=== PATIENT | female | born 1995 | race Caucasian/White ===

== ENCOUNTER 2017-12-15 00:17 | Emergency (ER) | payer MEDICAID ==
[~2017-12-15] VITALS: Ht 167.6 cm; Wt 56.7 kg
[2017-12-15] MEDS ORDERED: ALPRAZOLAM TAB 0.5MG (00:40)
[2017-12-15] MEDS ORDERED: SYMBICORT AER 160-4.5 (00:40)
[2017-12-15] MEDS ORDERED: MONTELUKAST TAB 10MG (00:40)
[2017-12-15] MEDS ORDERED: HYDROCODONE/APAP 5-325MG TABLET ONE (01:10)
[2017-12-15] MEDS ORDERED: HYDROCODONE/APAP 5-325MG TABLET PO ONE (01:15)
--- NOTE | 2017-12-15 02:12 | NUR ---
Patient discharged to home in stable conditon. Written and verbal after care instructions given. Patient verbalizes understanding of instructions. Pt left ER in steady gait. All belongings with pt. VSS. No acute distress noted. Pt will take Uber to get home.
[2017-12-15 02:13] VITALS: BP 121/74
== END 2017-12-15 02:14 | disposition home or self-care (01) ==
LOC: ER 00:22
DX: S13.4XXA Sprain of ligaments of cervical spine, initial encounter (principal); J45.909 Unspecified asthma, uncomplicated; Z79.899 Other long term (current) drug therapy; V43.62XA Car passenger injured in collision with other type car in traffic accident, initial encounter; Y93.89 Activity, other specified; Y92.410 Unspecified street and highway as the place of occurrence of the external cause; Y99.8 Other external cause status
CPT/HCPCS: 70450; 72125; 99284; A4663

== ENCOUNTER 2018-06-26 18:42 | Emergency (ER) | payer MEDICAID ==
[~2018-06-26] VITALS: Ht 167.6 cm; Wt 54.4 kg
[~2018-06-26 18:42] MED LIST: ALPRAZOLAM TAB 0.5MG; MONTELUKAST TAB 10MG; SYMBICORT AER 160-4.5
[2018-06-26] MEDS ORDERED: CYCLOBENZAPRINE (18:55)
[2018-06-26] MEDS ORDERED: MELOXICAM (18:55)
--- NOTE | 2018-06-26 19:24 | NUR ---
DR. NAYLOR AT BEDSIDE FOR MSE.
--- NOTE | 2018-06-26 19:28 | NUR ---
SHIFT REPORT GIVEN TO JANEY HOFF.
--- NOTE | 2018-06-26 19:38 | NUR ---
Patient discharged to home in stable conditon. Written and verbal after care instructions given. Patient verbalizes understanding of instructions. PATIENT LEFT WITH STABLE GAIT.
[2018-06-26 19:39] VITALS: BP 130/63
== END 2018-06-26 19:41 | disposition home or self-care (01) ==
LOC: ER 18:42
DX: S39.012A Strain of muscle, fascia and tendon of lower back, initial encounter (principal); J45.909 Unspecified asthma, uncomplicated; Z79.51 Long term (current) use of inhaled steroids; Z79.899 Other long term (current) drug therapy; X58.XXXA Exposure to other specified factors, initial encounter; Y93.89 Activity, other specified; Y92.89 Other specified places as the place of occurrence of the external cause; Y99.8 Other external cause status
CPT/HCPCS: A4663

== ENCOUNTER 2018-11-27 15:46 | Emergency (ER) | payer MEDICAID ==
[~2018-11-27] VITALS: Ht 167.6 cm; Wt 54.4 kg
[~2018-11-27 15:46] MED LIST changes: -ALPRAZOLAM TAB 0.5MG; +CYCLOBENZAPRINE; +MELOXICAM; -MONTELUKAST TAB 10MG; -SYMBICORT AER 160-4.5
[2018-11-27] MEDS ORDERED: IV NORMAL SALINE 1000 ML BAG IV ONE ×2 (16:00→16:45)
[2018-11-27] MEDS ORDERED: ONDANSETRON 4 MG/2 ML VIAL IV ONE (16:00)
[2018-11-27 16:03] LABS: *BILIRUBIN,URIN 1+ (NEGATIVE); *BLOOD, URINE 3+ (NEGATIVE); *CLARITY,URINE SLIGHTLY CLOUDY (CLEAR); *COLOR,URINE YELLOW (YELLOW); *KETONES,URINE 4+ (NEGATIVE); *UROBILINOGEN,URINE 0.2 E.U./dl (NORMAL); LEUKOCYTE ESTERASE ,URINE NEGATIVE (NEGATIVE); NITRITE, URINE NEGATIVE (NEGATIVE); PH,URINE 5.5 (5.0-8.0); UGLUCOSE NEGATIVE (NEGATIVE)
[2018-11-27 16:04] LABS: *URINE HCG, QUAL NEGATIVE (NEGATIVE)
[2018-11-27] MEDS ORDERED: ONDANSETRON 4 MG/2 ML VIAL ONE (16:07)
[2018-11-27 16:12] LABS: RBC,URINE 20-50 /HPF (0-3)
[2018-11-27 16:13] LABS: BACTERIA,URINE FEW /HPF (NONE SEEN); MUCUS,URINE MODERATE /LPF (0-FEW); SQUAMOUS EPITHELIAL CELL,UR MODERATE /HPF (NONE SEEN)
--- NOTE | 2018-11-27 16:15 | NUR ---
RECEIVED PT AMBULATORY FROM HOME. ALERT AND ORIENTED X4, CC NAUSEA AND VOMITING X 24HRS. DENIES PAIN. NOT IN DISTRESS [id number] MD AT BEDSIDE FOR HISTORY AND PHYSICAL
[2018-11-27 16:21] LABS: BASOPHILS % (AUTO) 0.4 % (0.0-2.0); HEMATOCRIT 41.9 % (31.2-41.9); HEMOGLOBIN 13.5 g/dL (10.9-14.3); LYMPHOCYTES # (AUTO) 0.6 K/uL (20.0-40.0); LYMPHOCYTES % (AUTO) 11.2 % (20.5-51.5); MEAN CORPUSCULAR HEMOGLOBIN 25.4 uug (24.7-32.8); MEAN CORPUSCULAR HGB CONC 32 g/dL (32.3-35.6); MEAN CORPUSCULAR VOLUME 78.7 fL (75.5-95.3); MONOCYTES # (AUTO) 0.1 K/uL (2.0-10.0); MONOCYTES % (AUTO) 2.4 % (0.0-11.0); NEUTROPHILS # (AUTO) 4.9 K/uL (1.8-8.9); PLATELET COUNT (AUTO) 308 K/uL (179-408); RED BLOOD CELL COUNT(AUTO) 5.33 MIL/uL (3.63-4.92); WHITE BLOOD COUNT (AUTO) 5.7 K/uL (3.8-11.8)
[2018-11-27 16:26] LABS: POTASSIUM 3.7 mmol/L (3.5-5.1)
--- NOTE | 2018-11-27 16:30 | NUR ---
RN INITIATED IV TO RIGHT AC, INTACT AND INFUSING WELL. ORDERED MEDS GIVEN PRESCRIBED. WILL MONITOR ACCORDINGLY. MD MADE AWARE PT IS REQUESTING XANAX FOR ANXIETY SHE HAS NOT TAKEN IT FOR THE PAST 24HRS DUE TO EMESIS. PT IS REASSURED, KEPT CALM AND COMFORTABLE.
[2018-11-27 16:32] LABS: BILIRUBIN,DIRECT 0.1 mg/dL (0.0-0.2); BILIRUBIN,TOTAL 0.5 mg/dL (0.2-1.0); TOTAL PROTEIN, SERUM 9.2 g/dL (6.4-8.2)
[2018-11-27] MEDS ORDERED: MORPHINE SULFATE 4 MG/1 ML DISP.SYRIN IV ONE (17:15)
[2018-11-27] MEDS ORDERED: IV NORMAL SALINE 250 ML IV ONE (17:22)
[2018-11-27] MEDS ORDERED: SWABABLE VALVE TRANSFER SET EA MC ONE (17:22)
[2018-11-27] MEDS ORDERED: IOHEXOL 300MG/ML 100 ML INFUS..BTL ONE (17:22)
--- NOTE | 2018-11-27 17:31 | NUR ---
Patient wants Xanax with the IV morphine injection, notified.
[2018-11-27] MEDS ORDERED: MORPHINE SULFATE 4 MG/1 ML DISP.SYRIN ONE (17:35)
[2018-11-27] MEDS ORDERED: METOCLOPRAMIDE HCL 10 MG/2 ML VIAL IV ONE (17:45)
[2018-11-27] MEDS ORDERED: METOCLOPRAMIDE HCL 10 MG/2 ML VIAL ONE (17:52)
--- NOTE | 2018-11-27 18:55 | NUR ---
Patient is resting comfortably on gurney with eyes closed. PATIENT IS PAIN FREE AT THIS TIME.
--- NOTE | 2018-11-27 19:14 | NUR ---
Hands off report given to JANEY Branch, still for CT scan results.
--- NOTE | 2018-11-27 19:56 | NUR ---
Patient discharged to home in stable conditon. Written and verbal after care instructions given. Patient verbalizes understanding of instructions. Pt ambulated out of ER with steady gait, no acute signs of distress, VSS, all belongings taken, IV site discontinued.
[2018-11-27 19:57] VITALS: BP 115/80
== END 2018-11-27 19:58 | disposition home or self-care (01) ==
LOC: ER 15:48
DX: E86.0 Dehydration (principal); R10.13 Epigastric pain; F41.9 Anxiety disorder, unspecified; J45.909 Unspecified asthma, uncomplicated; Z79.899 Other long term (current) drug therapy
CPT/HCPCS: 36415; 74177; 80048; 80076; 81000; 81001; 83690; 84703; 85025; 93005; 96361; 96374; 96375; 99284; J2270; J2405; J2765; Q9967; A4663; J7030; J7050

== ENCOUNTER 2019-01-31 18:30 | Emergency (ER) | payer MEDICAID, OTHER ==
[~2019-01-31] VITALS: Ht 167.6 cm; Wt 54.4 kg
--- NOTE | 2019-01-31 18:40 | NUR ---
in room 2b
--- NOTE | 2019-01-31 18:49 | NUR ---
initial assessment done. patient c/o wakness and c/0 never had seizure before. swallow study done and passed
--- NOTE | 2019-01-31 19:00 | NUR ---
report given to Cathy
--- NOTE | 2019-01-31 19:28 | NUR ---
Patient transported to CT in stable condition.
[2019-01-31 19:31] LABS: BASOPHILS % (AUTO) 0.9 % (0.0-2.0); EOSINOPHILS # (AUTO) 0.1 K/uL (0.0-0.7); EOSINOPHILS % (AUTO) 1.7 % (0.0-7.0); HEMATOCRIT 37.2 % (31.2-41.9); HEMOGLOBIN 12.2 g/dL (10.9-14.3); LYMPHOCYTES # (AUTO) 1.2 K/uL (20.0-40.0); LYMPHOCYTES % (AUTO) 26.9 % (20.5-51.5); MEAN CORPUSCULAR HEMOGLOBIN 25.3 uug (24.7-32.8); MEAN CORPUSCULAR HGB CONC 33 g/dL (32.3-35.6); MEAN CORPUSCULAR VOLUME 77.1 fL (75.5-95.3); MONOCYTES # (AUTO) 0.3 K/uL (2.0-10.0); MONOCYTES % (AUTO) 6.3 % (0.0-11.0); NEUTROPHILS # (AUTO) 2.9 K/uL (1.8-8.9); NEUTROPHILS % (AUTO) 64.2 % (38.5-71.5); PLATELET COUNT (AUTO) 298 K/uL (179-408); RED BLOOD CELL COUNT(AUTO) 4.82 MIL/uL (3.63-4.92); WHITE BLOOD COUNT (AUTO) 4.6 K/uL (3.8-11.8)
--- NOTE | 2019-01-31 19:37 | NUR ---
Patient back in room from CT in stable condition.
[2019-01-31 19:38] LABS: CREATININE 0.6 mg/dL (0.6-1.3); POTASSIUM 4.2 mmol/L (3.5-5.1)
[2019-01-31 19:49] LABS: BILIRUBIN,DIRECT 0.1 mg/dL (0.0-0.2); BILIRUBIN,TOTAL 0.2 mg/dL (0.2-1.0); TOTAL PROTEIN, SERUM 7.3 g/dL (6.4-8.2)
[2019-01-31] MEDS ORDERED: ALPRAZOLAM 0.25 MG TABLET PO ONE (20:00)
[2019-01-31] MEDS ORDERED: ALPRAZOLAM 0.25 MG TABLET ONE (20:03)
--- NOTE | 2019-01-31 20:19 | NUR ---
Patient discharged to home in stable conditon. Written and verbal after care instructions given. Patient verbalizes understanding of instructions. Patient ambulated with stable gait.
[2019-01-31 22:29] VITALS: BP 122/72
== END 2019-01-31 22:30 | disposition home or self-care (01) ==
LOC: ER 18:34
DX: R56.9 Unspecified convulsions (principal); J45.909 Unspecified asthma, uncomplicated; F41.9 Anxiety disorder, unspecified; Z79.899 Other long term (current) drug therapy
CPT/HCPCS: 36415; 70450; 85025; 93005; A4663

== ENCOUNTER 2019-08-31 20:23 | Emergency (ER) | payer SELFPAY ==
--- NOTE | 2019-08-31 20:45 | NUR ---
Patient left without being triaged or seen by ERMD.
== END 2019-08-31 21:07 | disposition left against medical advice (07) ==
LOC: ER 20:25
DX: R05 Cough (principal); Z53.21 Procedure and treatment not carried out due to patient leaving prior to being seen by health care provider

== ENCOUNTER 2020-08-14 11:59 | Emergency (ER) | payer MEDICAID, OTHER ==
[~2020-08-14] VITALS: Ht 167.6 cm; Wt 54.4 kg
--- NOTE | 2020-08-14 12:35 | NUR ---
at bedside for assessment
[2020-08-14 12:41] LABS: *COLOR,URINE YELLOW (YELLOW); *KETONES,URINE 4+ (NEGATIVE); *UROBILINOGEN,URINE 0.2 E.U./dl (NORMAL); LEUKOCYTE ESTERASE ,URINE NEGATIVE (NEGATIVE); NITRITE, URINE NEGATIVE (NEGATIVE); UGLUCOSE NEGATIVE (NEGATIVE)
[2020-08-14 12:42] LABS: *URINE HCG, QUAL NEGATIVE (NEGATIVE)
[2020-08-14 12:43] LABS: *BILIRUBIN,URIN 1+ (NEGATIVE); *BLOOD, URINE TRACE (NEGATIVE)
[2020-08-14 12:47] LABS: BASOPHILS % (AUTO) 0.5 % (0.0-2.0); HEMATOCRIT 38.5 % (31.2-41.9); HEMOGLOBIN 12.7 g/dL (10.9-14.3); LYMPHOCYTES # (AUTO) 0.6 K/uL (20.0-40.0); LYMPHOCYTES % (AUTO) 9.2 % (20.5-51.5); MEAN CORPUSCULAR HEMOGLOBIN 25.7 uug (24.7-32.8); MEAN CORPUSCULAR HGB CONC 33 g/dL (32.3-35.6); MEAN CORPUSCULAR VOLUME 78.1 fL (75.5-95.3); MONOCYTES # (AUTO) 0.1 K/uL (2.0-10.0); MONOCYTES % (AUTO) 2.4 % (0.0-11.0); NEUTROPHILS # (AUTO) 5.4 K/uL (1.8-8.9); NEUTROPHILS % (AUTO) 87.9 % (38.5-71.5); PLATELET COUNT (AUTO) 264 K/uL (179-408); RED BLOOD CELL COUNT(AUTO) 4.93 MIL/uL (3.63-4.92); WHITE BLOOD COUNT (AUTO) 6.2 K/uL (3.8-11.8)
[2020-08-14 12:48] LABS: *CLARITY,URINE HAZY (CLEAR); BACTERIA,URINE FEW /HPF (NONE SEEN); MUCUS,URINE FEW /LPF (0-FEW); SQUAMOUS EPITHELIAL CELL,UR MODERATE /HPF (NONE SEEN); URINE AMORPHOUS URATE FEW /HPF; WBC,URINE 0-3 /HPF (0-3)
[2020-08-14 12:54] LABS: CARBON DIOXIDE 27 mmol/L (21-32); CHLORIDE 101 mmol/L (98-107); CREATININE 0.7 mg/dL (0.6-1.3); GLUCOSE 127 mg/dL (74-106); POTASSIUM 3.8 mmol/L (3.5-5.1); UREA NITROGEN, BLOOD 10 mg/dL (7-18)
[2020-08-14 13:01] LABS: ALANINE AMINOTRANSFERASE 29 U/L (14-59); ALKALINE PHOSPHATASE 59 U/L (50-136); ASPARTATE AMINOTRANSFERASE 18 U/L (15-37); BILIRUBIN,DIRECT 0.1 mg/dL (0.0-0.2); BILIRUBIN,TOTAL 0.4 mg/dL (0.2-1.0); LIPASE 270 U/L (73-393); TOTAL PROTEIN, SERUM 7.5 g/dL (6.4-8.2)
[2020-08-14] MEDS ORDERED: ONDANSETRON 4 MG/2 ML VIAL ONE ×2 (13:10→14:04)
[2020-08-14] MEDS ORDERED: KETOROLAC TROMETHAMINE 30 MG INJ ONE (13:10)
[2020-08-14] MEDS ORDERED: MORPHINE SULFATE 2 MG/1 ML DISP.SYRIN ONE ×2 (13:11→14:04)
[2020-08-14] MEDS ORDERED: ONDANSETRON 4 MG/2 ML VIAL IV ONE ×2 (13:15→14:15)
[2020-08-14] MEDS ORDERED: MORPHINE SULFATE 2 MG/1 ML DISP.SYRIN IV ONE ×2 (13:15→14:15)
[2020-08-14] MEDS ORDERED: KETOROLAC TROMETHAMINE 30 MG INJ IVP ONE (13:15)
--- NOTE | 2020-08-14 15:34 | NUR ---
IV removed at this time
--- NOTE | 2020-08-14 15:49 | NUR ---
Patient discharged to home in stable condition. Patient states she coronel a ride. no signs of acute distress, all needs met. Written and verbal after care instructions given. Patient verbalizes understanding of instructions. Stressed follow up or return to ER for worsening s/s.
[2020-08-14 15:51] VITALS: BP 124/75
== END 2020-08-14 15:50 | disposition home or self-care (01) ==
LOC: ER 11:59
DX: R10.9 Unspecified abdominal pain (principal); R11.2 Nausea with vomiting, unspecified; J45.909 Unspecified asthma, uncomplicated
CPT/HCPCS: 36415; 76705; 80048; 80076; 81001; 83690; 84702; 84703; 85025; 96374; 96375; 96376; 99284; J1885; J2270 ×2; J2405 ×2; A4663; J7030

== ENCOUNTER 2020-09-15 02:02 | Emergency (ER) | payer OTHER ==
[~2020-09-15] VITALS: Ht 167.6 cm; Wt 52.2 kg
[2020-09-15] MEDS ORDERED: IV NS 1000 ML 1,000 ML IV ONE (02:30)
[2020-09-15] MEDS ORDERED: KETOROLAC TROMETHAMINE 30 MG INJ IVP ONE (02:30)
[2020-09-15] MEDS ORDERED: ONDANSETRON 4 MG/2 ML VIAL IV ONE ×2 (02:30→06:15)
[2020-09-15] MEDS ORDERED: MORPHINE SULFATE 2 MG/1 ML DISP.SYRIN IV ONE (02:30)
[2020-09-15 02:47] LABS: *BILIRUBIN,URIN 1+ (NEGATIVE); *COLOR,URINE YELLOW (YELLOW); *KETONES,URINE 3+ (NEGATIVE); *UROBILINOGEN,URINE 0.2 E.U./dl (NORMAL); LEUKOCYTE ESTERASE ,URINE NEGATIVE (NEGATIVE); NITRITE, URINE NEGATIVE (NEGATIVE); PH,URINE 6.5 (5.0-8.0); UGLUCOSE NEGATIVE (NEGATIVE)
[2020-09-15 02:50] LABS: *BLOOD, URINE TRACE (NEGATIVE); *CLARITY,URINE HAZY (CLEAR)
[2020-09-15] MEDS ORDERED: KETOROLAC TROMETHAMINE 30 MG INJ ONE (02:54)
[2020-09-15] MEDS ORDERED: MORPHINE SULFATE 2 MG/1 ML DISP.SYRIN ONE (02:54)
[2020-09-15] MEDS ORDERED: ONDANSETRON 4 MG/2 ML VIAL ONE ×2 (02:54→06:23)
[2020-09-15 02:58] LABS: *URINE HCG, QUAL NEGATIVE (NEGATIVE); BACTERIA,URINE MODERATE /HPF (NONE SEEN); RBC,URINE 0-3 /HPF (0-3); SQUAMOUS EPITHELIAL CELL,UR MANY /HPF (NONE SEEN); WBC,URINE 0-3 /HPF (0-3)
[2020-09-15 02:59] LABS: BASOPHILS % (AUTO) 0.5 % (0.0-2.0); EOSINOPHILS % (AUTO) 0.1 % (0.0-7.0); HEMATOCRIT 40.4 % (31.2-41.9); HEMOGLOBIN 13.4 g/dL (10.9-14.3); LYMPHOCYTES # (AUTO) 0.7 K/uL (20.0-40.0); LYMPHOCYTES % (AUTO) 13.1 % (20.5-51.5); MEAN CORPUSCULAR HEMOGLOBIN 25.8 uug (24.7-32.8); MEAN CORPUSCULAR HGB CONC 33 g/dL (32.3-35.6); MEAN CORPUSCULAR VOLUME 77.6 fL (75.5-95.3); MONOCYTES # (AUTO) 0.3 K/uL (2.0-10.0); MONOCYTES % (AUTO) 6.3 % (0.0-11.0); NEUTROPHILS # (AUTO) 4.4 K/uL (1.8-8.9); PLATELET COUNT (AUTO) 343 K/uL (179-408); RED BLOOD CELL COUNT(AUTO) 5.21 MIL/uL (3.63-4.92); WHITE BLOOD COUNT (AUTO) 5.5 K/uL (3.8-11.8)
[2020-09-15 03:04] LABS: BILIRUBIN,DIRECT 0.2 mg/dL (0.0-0.2); BILIRUBIN,TOTAL 0.6 mg/dL (0.2-1.0); CREATININE 0.8 mg/dL (0.6-1.3); POTASSIUM 3.8 mmol/L (3.5-5.1); TOTAL PROTEIN, SERUM 8.3 g/dL (6.4-8.2)
--- NOTE | 2020-09-15 03:10 | NUR ---
Patient is sleeping in room, eyes closed. No acute distress noted.
--- NOTE | 2020-09-15 03:20 | NUR ---
Patient verbalizes a great improvement in pain, stating she feels 1/10 pain now.
--- NOTE | 2020-09-15 04:00 | NUR ---
Patient is sleeping, eyes closed. No acute distress is noted at this time.
--- NOTE | 2020-09-15 05:00 | NUR ---
Patient is sleeping in room, eyes closed. No acute distress is noted at this time.
--- NOTE | 2020-09-15 06:00 | NUR ---
Patient is sleeping, eyes closed. No acute distress is noted at this time.
[2020-09-15] MEDS ORDERED: ONDA4TAB11 PO (06:20)
[2020-09-15 06:38] VITALS: BP 116/69
--- NOTE | 2020-09-15 06:38 | NUR ---
Patient discharged to home in stable condition. Written and verbal after care instructions given. Patient verbalizes understanding of instructions. Stressed follow up or return to ER for worsening s/s. Patient ambulates with steady gait, received Rx, V/S stable, left with all personal belongings.
== END 2020-09-15 06:38 | disposition home or self-care (01) ==
LOC: ER 02:06
DX: R10.84 Generalized abdominal pain (principal); R11.2 Nausea with vomiting, unspecified; E86.0 Dehydration; E87.1 Hypo-osmolality and hyponatremia; J45.909 Unspecified asthma, uncomplicated
CPT/HCPCS: 36415; 80048; 80076; 81001; 83690; 84703; 85025; 87086; 96361; 96374; 96375; 96376; 99284; J1885; J2270; J2405 ×2; A4663; J7030